=== PATIENT | female | born 1965 | race Two or more races ===

== ENCOUNTER 2016-03-17 11:18 | Emergency (ER) | payer OTHER ==
[2016-03-17 11:54] VITALS: BP 142/48
[2016-03-17] MEDS ORDERED: TETANUS-DIPTH-ACEL PERTUSSIS 0.5ML SYRG IM ONE (12:15)
[2016-03-19 10:25] LABS: Hepatitis B Surface Antibody Negative
== END 2016-03-17 12:28 | disposition home or self-care (01) ==
LOC: ER 11:20
DX: S61.431A Puncture wound without foreign body of right hand, initial encounter (principal); W27.3XXA Contact with needle (sewing), initial encounter; Y93.89 Activity, other specified; Y99.0 Civilian activity done for income or pay; Y92.69 Other specified industrial and construction area as the place of occurrence of the external cause
CPT/HCPCS: 36415; 86703; 86706; 86803; 87340; 90471; 90715

== ENCOUNTER 2020-07-20 14:18 | Emergency (ER) | payer SELFPAY ==
[~2020-07-20] VITALS: Ht 160 cm; Wt 79.8 kg
[2020-07-20 14:53] LABS: Urine Bacteria NONE SEEN /hpf (None Seen); Urine Blood 2+ /uL (Negative); Urine Specific Gravity 1.015 (1.001-1.035); Urine WBC 3 /hpf (0 - 5)
[2020-07-20 17:03] VITALS: BP 131/46
== END 2020-07-20 17:06 | disposition home or self-care (01) ==
LOC: ER 14:18
DX: N39.0 Urinary tract infection, site not specified (principal)
CPT/HCPCS: 81001